=== PATIENT | female | born 1970 | race Caucasian/White ===

== ENCOUNTER → 2016-12-08 | Outpatient (CLI) | payer OTHER | LOC: FIMAGING 18:48 | PROVIDERS: ATTEND Orthopaedic Surgery | DX: S83.261A Peripheral tear of lateral meniscus, current injury, right knee, initial encounter (principal); M22.41 Chondromalacia patellae, right knee; M76.31 Iliotibial band syndrome, right leg; M25.461 Effusion, right knee ==

== ENCOUNTER 2017-08-19 10:47 | Emergency (ER) | payer OTHER ==
[2017-08-19 11:03] VITALS: BP 144/78; PULSE 98; RESP 18; O2SAT 97
[2017-08-19] MEDS ORDERED: FAMOTIDINE 20 MG TAB PO ONE (12:15)
[2017-08-19] MEDS ORDERED: predniSONE 20 MG TAB PO ONE (12:16)
--- NOTE | 2017-08-19 12:17 | EDPHY ---
H & P Smoking Status: Never smoked Time Seen by Provider: 08/19/17 11:51 HPI/ROS: CHIEF COMPLAINT: Rash HISTORY OF PRESENT ILLNESS: 46-year-old female presents to the emergency department with pruritic rash. Patient states last night she developed rash to chest, abdomen and neck which is now since spread. She describes this as intensely itchy. She took Benadryl orally and topically with only minimal relief. She denies chest pain or difficulty breathing. Denies sore throat. Denies pain in her ears. Patient is concerned because she is on Lamictal and has been for years and was concerned about possible Salinas-Michael syndrome. REVIEW OF SYSTEMS: Constitutional: No fever, no chills. Eyes: No double or blurry vision. ENT: No sore throat. Respiratory: No cough, no shortness of breath. Cardiac: No chest pain. Gastrointestinal: No abdominal pain, vomiting or diarrhea. Genitourinary: No dysuria. Musculoskeletal: No neck or back pain. Skin: Rash as above Neurological: No headache. (Jordyn Echeverria) Past Medical/Surgical History: Depression (Jordyn Echeverria) Social History: and lives in [place] (Jordyn Echeverria) Physical Exam: General Appearance: Alert, no distress. Vital signs are stable Eyes: Pupils equal and round. Extraocular motions are all intact. No sores noted to conjunctiva or eyelids. ENT: Mouth: Mucous membranes moist. No lesions in posterior pharynx. Ears are clear. Respiratory: No wheezing, rhonchi, or rales, lungs are clear to auscultation. Cardiovascular: Regular rate and rhythm. Gastrointestinal: Abdomen is soft and nontender, no masses, no rebound or guarding, bowel sounds normal. Neurological: Alert and oriented x 3, cranial nerves II through XII grossly intact Skin: Diffuse erythematous macular papular rash which blanches to the touch. No vesicles. No pustules. Musculoskeletal: Nontender to palpate along the cervical, thoracic or lumbar spine. Neck is supple. Extremities: Full range of motion and no peripheral edema. Psychiatric: Patient is oriented X 3, there is no agitation. (Jordyn Echeverria) Constitutional: Initial Vital Signs Heart Rate 98 08/19/17 11:00 Respiratory Rate 18 08/19/17 11:00 Blood Pressure 144/78 H 01/28/18 11:00 O2 Sat (%) 97 08/19/17 11:00 O2 Delivery Mode Room Air Allergies/Adverse Reactions: No Known Allergies Allergy (Verified 07/22/13 17:34) Home Medications: Medication Instructions Recorded FLUoxetine [Prozac] 20 mg PO 05/21/09 Lamictal 07/22/13 predniSONE 60 mg PO DAILY 4 Days tab 08/19/17 Medical Decision Making ED Course/Re-evaluation: I explained to the patient that this appears more of a histamine type reaction. She will be treated with prednisone, Pepcid, and Benadryl. I did warn about the risks of possible Salinas-Michael syndrome. She has no involvement of mucous membranes. I did encourage her to stop the Lamictal and talk with her psychiatrist or primary care provider about this medication. Patient verbalized understanding and agreed. I do not think laboratory studies or IV is indicated. Patient has no respiratory distress. (Jordyn Echeverria) Differential Diagnosis: Including but not limited to urticaria, Osvaldo Michael syndrome, medication reaction, anaphylaxis (Jordyn Echeverria) Other Provider: PHYSICIAN DOCUMENTATION: The patient was evaluated and managed by the Physician Surveillance Sensor Operator. My co- signature indicates that I have reviewed this chart and I agree with the findings and plan of care as documented. I am the secondary supervising physician. (Lloyd Funk) - Data Points Medications Given: Discontinued Medications Famotidine (Pepcid) 20 mg PO EDNOW ONE Stop: 08/19/17 12:16 Last Admin: 08/19/17 12:21 Dose: 20 mg Prednisone (Prednisone) 60 mg PO EDNOW ONE Stop: 08/19/17 12:17 Last Admin: 08/19/17 12:21 Dose: 60 mg Departure - Departure Disposition: Home, Routine, Self-Care Clinical Impression: Urticaria, Pruritic rash Condition: Good Instructions: Urticaria (ED), Acute Rash (ED) Additional Instructions: Benadryl 50 mg every 6 hr as needed for itching, cautioned drowsiness with this medication. Pepcid 20 mg in the morning at night for symptoms of itchy rash. Prednisone daily for 5 days. Stop Lamictal as discussed. 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 Referrals: John Cooper MD [Medical Doctor] - 2-3 days, if not improved (Primary care provider gas controller) Prescriptions: predniSONE 60 mg PO DAILY 4 Days tab
== END 2017-08-19 12:28 | disposition home or self-care (01) ==
DX: L50.9 Urticaria, unspecified (principal)
CPT/HCPCS: J7512

== ENCOUNTER → 2018-04-25 | Outpatient (CLI) | payer OTHER | LOC: FIMAGING 15:36 | PROVIDERS: ATTEND Internal Medicine | DX: Z12.31 Encounter for screening mammogram for malignant neoplasm of breast (principal) ==

== ENCOUNTER → 2018-05-02 | Outpatient (CLI) | payer OTHER | LOC: FIMAGING 14:54 | PROVIDERS: ATTEND Internal Medicine | DX: N60.02 Solitary cyst of left breast (principal) ==

== ENCOUNTER 2018-11-08 13:36 | Emergency (ER) | payer OTHER ==
[2018-11-08 13:55] VITALS: BP 123/83
--- NOTE | 2018-11-08 14:03 | EDPHY ---
H & P Time Seen by Provider: 11/08/18 13:54 HPI/ROS: CHIEF COMPLAINT: Sore throat HISTORY OF PRESENT ILLNESS: Patient is a 47-year-old female presents emergency department with sore throat and swollen lymph nodes. Patient became ill this morning. Patient states that her stepdaughter was recently diagnosed with strep throat. She states that she was likely exposed because she was evaluating her daughter's throat. Patient denies fevers or chills. She has mild body aches. Patient is concerned because she is going to care for her father on Sunday. He is having open heart surgery. Patient denies any abdominal pain. No nausea or vomiting. No rash. REVIEW OF SYSTEMS: 10 systems were reveiwed and are negative with the exception of the elements mentioned in the history of present illness. Past Medical/Surgical History: Includes depression, mood disorder Smoking Status: Never smoked Physical Exam: Vitals noted. Afebrile GENERAL: Well-appearing, in no acute distress, alert. HEENT: Eyes normal to inspection, no signs of dehydration. Patient has mild pharyngeal erythema. There are no lesions. No discharge. NECK: Normal, supple. Bilateral anterior lymphadenopathy. RESPIRATORY: Clear to auscultation bilaterally, no rales, rhonchi or wheezing. CVS: Regular rate and rhythm, no rubs, murmurs, or gallops. ABDOMEN: Soft, nontender, nondistended, no organomegaly. BACK: Normal to inspection, no CVA tenderness. SKIN: Normal color, no rash, warm, dry. No pallor. EXTREMITIES: No pedal edema, no joint swelling. NEURO/PSYCH: Alert and oriented, normal mood and affect, normal motor sensory exam. Constitutional: Initial Vital Signs Temperature (C) 36.6 C 11/08/18 13:51 Heart Rate 97 11/08/18 13:51 Respiratory Rate 12 11/08/18 13:51 Blood Pressure 123/83 H 11/08/18 13:51 O2 Sat (%) 96 11/08/18 13:51 O2 Delivery Mode Room Air Allergies/Adverse Reactions: No Known Allergies Allergy (Verified 07/22/13 17:34) Home Medications: Medication Instructions Recorded FLUoxetine [Prozac] 20 mg PO 05/21/09 Lamictal 07/22/13 Penicillin V Potassium 500 mg PO TID 10 Days tablet 11/08/18 Medical Decision Making ED Course/Re-evaluation: In the emergency department I discussed possible etiologies with the patient. I answered all her questions. Because the patient's daughter was diagnosed with strep pharyngitis in the patient is going to care for her ill father she was given penicillin. She will take the entire course of antibiotics. She was given warnings prior to leaving. She will return with worsening symptoms. Differential Diagnosis: My differential includes but is not limited to strep pharyngitis, pharyngitis, viral illness, influenza, bacteremia, sepsis Departure - Departure Disposition: Home, Routine, Self-Care Clinical Impression: Acute pharyngitis Qualifiers: Pharyngitis/tonsillitis etiology: unspecified etiology Qualified Code(s): J02.9 - Acute pharyngitis, unspecified Condition: Good Instructions: Pharyngitis (ED) Additional Instructions: Take your entire course of antibiotics. Return with increasing sore throat, shortness of breath, or worsening symptoms. Referrals: Melanie Quinn MD [Primary Care Provider] - 3-4 days, if not improved Prescriptions: Penicillin V Potassium 500 mg PO TID 10 Days tablet
== END 2018-11-08 14:22 | disposition home or self-care (01) ==
LOC: CED 13:36
DX: J02.9 Acute pharyngitis, unspecified (principal)
CPT/HCPCS: 99283-ER